=== PATIENT | female | born 2000 | race Caucasian/White ===

== ENCOUNTER 2019-07-22 19:28 | Emergency (ER) | payer OTHER ==
[~2019-07-22] VITALS: Ht 162.6 cm; Wt 90.2 kg
[2019-07-22] MEDS ORDERED: TETanus/Pertussis (Acell)/Diphther VAC/PF (Tdap-Adult) 0.5ml syringe IMVAC ONE (20:45)
[2019-07-22 21:09] VITALS: BP 149/79
== END 2019-07-22 21:10 | disposition home or self-care (01) ==
LOC: ER 19:29
DX: S91.312A Laceration without foreign body, left foot, initial encounter (principal); W22.8XXA Striking against or struck by other objects, initial encounter; Y93.89 Activity, other specified; Y92.89 Other specified places as the place of occurrence of the external cause; Y99.0 Civilian activity done for income or pay
CPT/HCPCS: 90471; 90715; 99283

== ENCOUNTER 2019-09-22 17:36 | Emergency (ER) | payer SELFPAY ==
[~2019-09-22] VITALS: Ht 162.6 cm; Wt 84.1 kg
[2019-09-22 17:37] VITALS: BP 133/97
[2019-09-22] MEDS ORDERED: GUAI1TBM19 PO (17:50)
[2019-09-22] MEDS ORDERED: ALBU6.7H9 INH (17:50)
== END 2019-09-22 18:02 | disposition home or self-care (01) ==
LOC: ER 17:36
DX: J22 Unspecified acute lower respiratory infection (principal)
CPT/HCPCS: 99283

== ENCOUNTER 2020-02-15 08:55 | Emergency (ER) | payer BC ==
[~2020-02-15] VITALS: Ht 162.6 cm; Wt 84.5 kg
[~2020-02-15 08:55] MED LIST: ALBU6.7H9 INH; GUAI1TBM19 PO
[2020-02-15] MEDS ORDERED: acetaminophen 325mg tablet PO ONE (09:50)
[2020-02-15 10:16] LABS: BASOPHILS % (AUTO) 0.4 % (0-1); EOSINOPHILS # (AUTO) 0.1 X10'3 (0-0.9); EOSINOPHILS % (AUTO) 0.8 % (0-6); HEMATOCRIT 42.3 % (35.0-45.0); HEMOGLOBIN 14.6 g/dl (12.0-16.0); LYMPHOCYTES # (AUTO) 1.5 X10'3 (1.1-4.8); LYMPHOCYTES % (AUTO) 15.6 % (21-51); MEAN CORPUSCULAR HEMOGLOBIN 29.8 PG (27.0-31.0); MEAN CORPUSCULAR HGB CONC 34.5 g/dL (33.0-36.5); MEAN CORPUSCULAR VOLUME 86.4 FL (78-98); MEAN PLATELET VOLUME 6.7 FL (7.4-10.4); MONOCYTES # (AUTO) 0.5 X10'3 (0-0.9); MONOCYTES % (AUTO) 5.2 % (2-12); NEUTROPHILS # (AUTO) 7.7 X10'3 (1.8-7.7); PLATELET COUNT 304 X10'3 (140-440); RED BLOOD COUNT 4.89 X10'6 (4.20-5.60); RED CELL DISTRIBUTION WIDTH 13.2 % (11.5-14.5); WHITE BLOOD COUNT 9.8 X10'3 (4.5-11.0)
--- NOTE | 2020-02-15 10:34 | NUR ---
US TECH AT BEDSIDE.
[2020-02-15 12:43] VITALS: BP 114/73
== END 2020-02-15 12:45 | disposition home or self-care (01) ==
LOC: ER 08:56
DX: O03.9 Complete or unspecified spontaneous abortion without complication (principal); Z3A.11 11 weeks gestation of pregnancy; Z79.899 Other long term (current) drug therapy
CPT/HCPCS: 36415; 76801; 76830; 84702; 85025; 86900; 86901; 93976; 99284; 99285

== ENCOUNTER 2023-05-02 11:10 | Outpatient (CLI) | payer MEDICAID ==
[~2023-05-02 11:10] MED LIST changes: +ALBU6.7H14 INH; -ALBU6.7H9 INH
== END 2023-05-02 23:59 | disposition home or self-care (01) ==
LOC: RAD 11:10
PROVIDERS: ATTEND Nurse Practitioner
DX: M25.561 Pain in right knee (principal)
CPT/HCPCS: 73721